=== PATIENT | male | born 1960 | race African-American/Black ===

== ENCOUNTER 2016-06-20 16:23 | Inpatient (IN) | payer MEDICARE, OTHER ==
[2016-06-20] MEDS ORDERED: Sodium Chloride 0.9% 1,000 ML IV ONE (16:53)
--- NOTE | 2016-06-20 17:46 | ED Physician Chart ---
Chief Complaint/HPI - Patient Information Date Seen:: 06/20/16 Time Seen:: 16:59 Chief Complaint:: COMBATIVE History of Present Illness:: THIS IS A 56 YO MALE PSYCH PATIENT WHO IS CONFUSED AND COMBATIVE. HE IS REFUSING BLOOD WORK AND MEDICATION AND WILL GIVE NO HISTORY. HE HAS BEEN HERE IN THE [facility] 04[facility]16[facility]16. THIS PATIENT NEEDS PSYCH EVALUATION AND TREATMENT. HE ALSO HAD SOME PROBLEM WITH HIS DIABETES AND RENAL FAILURE PROBLEM. Allergies:: Allergies Allergy/AdvReac Type Severity Reaction Status Date / Time No Known Allergies Allergy Verified 06/20/16 16:32 Vitals:: Vital Signs - 8 hr 06/20/16 16:25 Temp 97.8 F HR 73 RR 18 BP 103/63 O2 Sat % 98 Historian:: EMS, Medical Records Review:: Nurse's Note Reviewed Review of Systems - Review of Systems General/Constitutional: Other (REFUSED TO GIVE REVIEW OF SYSTEMS) Past Medical History - Past Medical History Obtainable: No Past Medical History: HTN, ESRD, Dementia Family History: None Social History: Non Smoker, No Alcohol, No Drug Use Surgical History: None Psychiatricy History: None Family Medical History - Family Member Mother History Unknown: Yes Physical Exam - Physical Examination General/Constitutional: Awake, Well-developed, well-nourished, Alert, No distress, GCS 15, Non-toxic appearing, Ambulatory Head: Atraumatic Eyes: Lids, conjuctiva normal, PERRL, EOMI Skin: Nl inspection, No rash, No skin lesions, No ecchymosis, Well hydrated, No lymphadenopathy ENMT: External ears, nose nl, Nasal exam nl, Lips, teeth, gums nl Neck: Nontender, Full ROM w/o pain, No JVD, No nuchal rigidity, No bruit, No mass, No stridor Respiratory: Nl effort/Exclusion, Clear to Auscultation, No Wheeze/Rhonchi/Rales Cardio Vascular: RRR, No murmur, gallop, rubs, NL S1 S2 GI: No tenderness/rebounding/guarding, No organomegaly, No hernia, Normal BS's, Nondistended, No mass/bruits, No McBurney tenderness : No CVA tenderness Extremities: No tenderness or effusion, Full ROM, normal strength in all extremities, No edema, Normal digits & nails Neuro/Psych: DTR's symmetric, Normal sensory exam, Normal motor strength, Mood normal, Normal gait, No focal deficits Other Neuro/Psych comments:: THIS PATIENT IS OUT OF TOUCH WITH REALITY AND UNCOOPERATIVE. Misc: normal gait, Normal back, No paraspinal tenderness Labs/Radiology/EKG Results - EKG Interpretations EKG Time:: 16:54 Rate & Rhythm: RATE = 64, NSR [place]: LEFT AXIS ED Septic Shock - . Is Septic Shock (SBP<90, OR Lactate>4 mmol\L) present?: No - <6hrs of presentation: Vital Signs: Vital Signs - 8 hr /07/02 16:25 Temp 97.8 F HR 73 RR 18 BP 103/63 O2 Sat % 98 Reassessment (Disposition) - Reassessment Reassessment Condition:: Unchanged - Diagnosis Diagnosis:: ALTERED LEVEL OF CONSCIOUSNESS RENAL FAILURE - Patient Disposition Discharge/Transfer:: Acute Care w/in this hosp Admitting Medical Physician:: Jason Self Condition at Disposition:: Unchanged ED Discharge Plan - Patient Disposition Admit/Discharge/Transfer: Acute Care w/in this hosp Condition at Disposition: Guarded Instructions: Psychosis
[2016-06-20] MEDS ORDERED: Haloperidol Lactate 5 mg/mL 1mL Vial IM STA (19:13)
[2016-06-20] MEDS ORDERED: Haloperidol Lactate 5 mg/mL 1mL Vial ONE ×2 (19:50→20:52)
[2016-06-20 20:48] LABS: % BASOPHILS 0.9 % (0.0-2.0); % LYMPHOCYTES 51.7 % (20.0-50.0); % MONOCYTES 5.4 % (2.0-10.0); HEMATOCRIT 44.1 % (39.0-49.0); HEMOGLOBIN 14.4 gm/dL (13.2-17.3); MEAN CELL VOLUME 87.2 fl (80-99); MEAN CORPUSCULAR HEMOGLOBIN 28.5 pg (26.0-30.0); MEAN CORPUSCULAR HGB CONC 32.7 pg (28.0-36.0); NEUTROPHILE ABSOLUTE 2.5 Th/cmm (1.8-8.0); PLATELET COUNT 162 Th/cmm (150-400); RED BLOOD COUNT 5.05 Mil/cmm (4.30-5.70); RED CELL DISTRIBUTION WIDTH 12.1 % (11.5-20.0); WHITE BLOOD COUNT 6.1 Th/cmm (4.8-10.8)
[2016-06-20] MEDS ORDERED: Haloperidol Lactate 5 mg/mL 1mL Vial IVP ONE (20:52)
[2016-06-20 21:14] LABS: INR 1.12 (0.5-1.4); PROTHROMBIN TIME (TEST) 11.8 SECONDS (9.5-11.5)
[2016-06-20 21:27] LABS: ALB/GLOB RATIO 0.8 (1.0-1.8); ALKALINE PHOSPHATASE 36 U/L (34-104); ANION GAP 10.1 (7.0-16.0); BILIRUBIN,TOTAL 1.9 mg/dL (0.3-1.0); BUN - UREA NITROGEN 33 mg/dL (7-25); CALCIUM SERUM 10.3 mg/dL (8.6-10.3); CARBON DIOXIDE 22.8 mEq/L (21.0-31.0); CHLORIDE 107 mEq/L (98-107); CHOLESTEROL 123 mg/dL (<200); CREATININE - SERUM 1.5 mg/dL (0.7-1.3); GLUCOSE 191 mg/dL (70-105); POTASSIUM SERUM 3.9 mEq/L (3.5-5.1); SGOT 77 U/L (13-39); SGPT/ALT 70 U/L (7-52); SODIUM SERUM 136 mEq/L (136-145); TRIGLYCERIDES 86 mg/dL (<150)
[2016-06-20] MEDS ORDERED: Hydrocodone/APAP 10 mg/325 mg Tab PO PRN (23:37)
[2016-06-20] MEDS ORDERED: Hydrocodone/APAP 5mg/325mg Tab PO PRN (23:37)
[2016-06-20] MEDS ORDERED: Maalox 30 mL Cup PO PRN (23:37)
[2016-06-20] MEDS ORDERED: Magnesium Hydroxide (MOM) 30 mL UDC PO PRN (23:37)
[2016-06-20] MEDS ORDERED: CA CARB PO SCH (23:45)
[2016-06-20] MEDS ORDERED: [UNRECOGNIZED DRUG - OTHER] PO SCH (23:45)
[2016-06-20] MEDS ORDERED: MAG HYDROX PO SCH (23:45)
[2016-06-20] MEDS ORDERED: FAMOTIDINE PO SCH (23:45)
--- NOTE | 2016-06-21 04:35 | Admit Criteria Form ---
Admit Criteria Forms - Admit Criteria Diagnosis: ACUTE LOSS OF CONSCIOUSNESS- ALOC Clinical Indications for Inpatient Care (Place 'X' for any and all applicable criteria): Ongoing inpatient care may be needed for ANY ONE of the following(1)(2)(3)(5)(6) : [X ]I. Suspected serious etiology (eg, medical disorder, AIR BREAKER OPERATOR event) of mental status change [ ]II. Danger to self or others not manageable at lower level of care [ ]III. Grave disability (eg, inability to perform self care necessary at lower level of care) [ ]IV. Agitation or inappropriate behavior interfering with care for primary condition (eg, attempting to discontinue lines or drains prematurely, unable to cooperate with respiratory care) [ ]V. Delirium [A] [D][E] as described by ANY ONE of the following(26): [ ]a) Delirium due to alcohol or sedative [F] withdrawal [ ]b) Delirium of uncertain etiology that has not responded to appropriate empiric treatment [ ]c) Delirium that prevents performance of a life-sustaining function (eg, feeding or hydrating oneself) [ ]. General contraindications and/or Inappropriate clinical situations for Observational Care in patients with Acute Loss of Consciousness, when ANY ONE of the following is required: [ ]a) Prediction of prolongation of LOS based on ANY ONE of the following may be considered as a contraindication for observational care 2, 3, 4, 5, 6, 7, 8 , 9, 10, 11 [ ]i) Age > 65 yrs. [ ]ii) Patient arriving by ambulance [ ]iii) Patient with high acuity [ ]iv) Patient requiring vital sign monitoring [ ]v) Patient on IV medication [ ]b) Systolic blood pressures 180mmHg 3,12 [ ]c) Patient with altered mental status including delirium and other alteration of consciousness, (3) [ ]d) Patient whose discharge disposition will be to a snf home or rehabilitation home should not be managed in Emergency Department Observation Unit. CMS rule requires 3 days hospital stay before such placement.3,13 [ ]e) Patient with failure to thrive due to broad array of etiologies 3,16,17 [ ]f) Inability to ambulate 3,14 Extended stay beyond goal length of stay for the primary condition may be needed until ALL of the following are present(3)(5): [ ]a) Underlying medical etiology of mental status change is absent, or has been established and adequately treated [ ]b) Danger to self or others is absent or manageable at lower level of care. [ ]c) Behavior crisis management, including physical or chemical restraints, is not required or available at lower level of car [ ]d) Substance or alcohol withdrawal is absent or manageable at lower level of care. [ ]e) Behavioral symptoms (eg, agitation, somnolence, inappropriate behavior) are absent, or are manageable at lower level of care. The original [facility] content created by [facility] has been revised. The portions of the content which have been revised are identified through the use of italic text or in bold, and [facility] has neither reviewed nor approved the modified material. All other unmodified content is copyright [facility]. Please see references footnoted in the original [facility] edition 2016 Admit Criteria Met?: Yes
[2016-06-21 06:51] LABS: % BASOPHILS 1.4 % (0.0-2.0); % EOSINOPHILS 1.8 % (0.0-5.0); % LYMPHOCYTES 44.1 % (20.0-50.0); % MONOCYTES 8.1 % (2.0-10.0); % NEUTROPHILS 44.6 % (40.0-80.0); HEMATOCRIT 41.9 % (39.0-49.0); HEMOGLOBIN 13.6 gm/dL (13.2-17.3); MEAN CELL VOLUME 87.9 fl (80-99); MEAN CORPUSCULAR HEMOGLOBIN 28.6 pg (26.0-30.0); MEAN CORPUSCULAR HGB CONC 32.6 pg (28.0-36.0); MEAN PLATELET VOLUME 9.9 fl; NEUTROPHILE ABSOLUTE 2.4 Th/cmm (1.8-8.0); PLATELET COUNT 149 Th/cmm (150-400); RED BLOOD COUNT 4.77 Mil/cmm (4.30-5.70); RED CELL DISTRIBUTION WIDTH 11.8 % (11.5-20.0); WHITE BLOOD COUNT 5.4 Th/cmm (4.8-10.8)
[2016-06-21] MEDS: INSULIN ASPART SLIDING SCALE 100 UNITS/ML UNIT SUBQ SCH ×4 (06:56→21:40)
[2016-06-21 07:33] LABS: ANION GAP 5.7 (7.0-16.0); BUN - UREA NITROGEN 30 mg/dL (7-25); CALCIUM SERUM 9.8 mg/dL (8.6-10.3); CARBON DIOXIDE 27.8 mEq/L (21.0-31.0); CHLORIDE 108 mEq/L (98-107); CREATININE - SERUM 1.2 mg/dL (0.7-1.3); GLUCOSE 262 mg/dL (70-105); POTASSIUM SERUM 4.5 mEq/L (3.5-5.1); SODIUM SERUM 137 mEq/L (136-145)
[2016-06-21] MEDS ORDERED: Sodium Chloride 0.9% 1,000 ML IV SCH (10:15)
--- NOTE | 2016-06-21 10:47 | Diagnostic Imaging Report ---
Portable chest x-ray History: Cough Allowing for portable technique the heart size is normal. No focal pulmonary parenchymal processes. No hilar or mediastinal abnormalities. Impression: No acute abnormalities.
--- NOTE | 2016-06-21 12:50 | History & Physical ---
ADMIT DATE: 06/20/2016 CHIEF COMPLAINT: Combative. HISTORY OF PRESENT ILLNESS: A 56-year-old black male who feels combative. The patient has been refusing blood work and medication and history. He has been here in the past. The patient needs psych evaluation and treatment. The patient also with diabetes and kidneys. ALLERGIES: No known allergies. REVIEW OF SYSTEMS: See history of present illness. PAST MEDICAL HISTORY: Hypertension, chronic kidney, dementia. PAST SURGICAL HISTORY: None known. FAMILY HISTORY: Unknown. SOCIAL HISTORY: No reports of smoking, drinking or drug use. PSYCHIATRIC HISTORY: Unknown. MEDICATIONS: See medication reconciliation form. PHYSICAL EXAMINATION: GENERAL: The patient is asleep. No acute distress. HEENT: Normocephalic, atraumatic. Extraocular movements intact. Pupils equal, round and reactive. Oropharynx clear. NECK: Supple. No thyromegaly. No lymphadenopathy. RESPIRATORY: Clear. No wheezes or rhonchi. CARDIOVASCULAR: S1, S2. No murmurs, rubs or gallops. GASTROINTESTINAL: Soft, nontender, nondistended, good bowel sounds. GENITOURINARY: No significant tenderness or suprapubic tenderness. BACK: No midline tenderness. EXTREMITIES: Equal pulses bilaterally. No cyanosis, clubbing or edema. SKIN: Negative. NEUROLOGIC: Cranial nerves intact. Extraocular movements intact. Sensory intact. Neurovascular is intact. Bilateral muscles grossly normal. LABORATORY DATA: On admission are as follows: Hematology: WBC 6.1, hemoglobin 14, hematocrit 41.4, platelet count of 162, and 51% neutrophils. PT 11.8, INR 1.12, PTT 25.9. Chemistry: Sodium 136, potassium 3.9, chloride per labs, bicarbonate 26.2, anion gap 10, BUN 33 and creatinine 0.5. GFR is more than 60. Glucose is 191, hemoglobin A1c 11.4, calcium 10.3, total bilirubin 1.9, AST 77, ALT 70, alkaline phosphatase is 36. Troponin 0.01. Total protein 8.9, albumin 4.0, globulin 4.9, triglycerides 86, cholesterol 123, LDL is 59, HDL 38. TSH 1.44. RPR nonreactive. IMPRESSION: 1. Altered level of consciousness. 2. Acute kidney injury. 3. Hyperglycemia. 4. Transaminitis. 5. Hypoalbuminemia. 6. Protein-calorie malnutrition (mild). 7. Dyslipidemia. 8. Hypertension. 9. Chronic kidney disease. 10. Dementia. 11. Diabetes mellitus. 12. Diabetic nephropathy. PLAN: The patient admitted to med/surg unit at [facility]. We will obtain further labs and consultation as needed. JOB# [id number] NICKY
--- NOTE | 2016-06-21 20:56 | Consultation ---
DATE OF CONSULTATION: 06/21/2016 REQUESTING PHYSICIAN: Dr. Self. REASON FOR CONSULTATION: Psychosis. HISTORY OF PRESENT ILLNESS: This patient is a 56-year-old -[place] male admitted with altered level of mental status and the psychiatric consultation is called with regards to the patient's refusal to comply with the medications and bizarre behaviors. Staff was spoken to. The patient is interviewed. During the interview, the patient has been mentioning that he was discharged to [facility] and he has been on psych medications, but he could not figure it out what medications they are. The patient is actively responding to internal stimuli. The patient has been behaving difficult to give the information with regards to any of the medications. SUBSTANCE ABUSE HISTORY: The patient denies use of any drugs or alcohol at this time. PHYSICAL OR SEXUAL ABUSE HISTORY: The patient denies any history of being physically or sexually abused. 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 MENTAL EXAMINATION: The patient is a 56-year-old, looking his stated age, superficially cooperative. Eye contact is fair. Mood is irritable. Affect is constricted. Insight and judgment at this time are noted to be impaired. Impulse control seems to be poor. The patient has been having difficult time to cope with the stress. The patient is not able to contract for safety at this time. The patient is actively responding to internal stimuli. The patient is, however, not presenting with any threats to harm self or others. DIAGNOSTIC ASSESSMENT: The patient is going to be started on olanzapine 5 mg at bedtime and the patient is going to be followed up with supportive therapy. Thank you, Dr. Self, for allowing me to participate in the care of the patient. JOB# [id number]
[2016-06-22] MEDS: INSULIN ASPART SLIDING SCALE 100 UNITS/ML UNIT SUBQ SCH ×4 (07:55→21:23)
[2016-06-22 18:06] LABS: URINE BILIRUBIN NEGATIVE (NEGATIVE); URINE BLOOD NEGATIVE (NEGATIVE); URINE COLOR YELLOW; URINE GLUCOSE (UA) 500 mg/dL (NEGATIVE); URINE KETONE NEGATIVE (NEGATIVE); URINE PH 5.5; URINE PROTEIN 100 mg/dL (NEGATIVE)
[2016-06-22 18:07] LABS: URINE BACTERIA FEW /hpf (NONE SEEN); URINE EPITHELIAL CELLS RARE /lpf (FEW); URINE RBC 0-1 /hpf (0-5); URINE WBC 0-2 /hpf (0-5)
--- NOTE | 2016-06-23 06:08 | Consultation ---
DATE OF CONSULTATION: 06/22/2016 REFERRING PHYSICIAN: Dr. Jasno Self. REASON FOR CONSULTATION: Acute kidney injury. HISTORY OF PRESENT ILLNESS: The patient is a 56-year-old male with psychiatric history, recently a resident of [facility] who has been admitted after nonadherence to medication and reportedly having bizarre behavior. He has been initiated on olanzapine per Dr. Rosas and upon admission was found to have acute kidney injury with an elevated creatinine of 1.5, hence the reason for consultation. Subsequent creatinine yesterday was improved to 1.2. He has refused further blood work and urine work that was ordered. Of note, he also has uncontrolled type 2 diabetes mellitus. PAST MEDICAL HISTORY: 1. Psychiatric disorder, not otherwise specified. 2. Type 2 diabetes mellitus. PAST SURGICAL HISTORY: None. SOCIAL HISTORY: States that he quit smoking and drinking several years ago. Denies illicit drug use. ALLERGIES: No known allergies. INPATIENT MEDICATIONS: Reviewed. He is on p.r.n. Tylenol, [place], Maalox, and Benadryl. He is also on Depakote, glipizide, sliding scale insulin, Ativan, and olanzapine. REVIEW OF SYSTEMS: CONSTITUTIONAL: Fair appetite. No fever or chills. CARDIOVASCULAR: No chest pain or palpitations. PULMONARY: No shortness of breath or cough. GASTROINTESTINAL: No nausea, vomiting, or constipation. GENITOURINARY: No dysuria or hematuria. MUSCULOSKELETAL: No acute joint pain or tenderness. PHYSICAL EXAMINATION: VITAL SIGNS: Temperature 97, heart rate 62, blood pressure 153/71, and respirations are 18. GENERAL: The patient is awake and alert, in no apparent distress. States that he wants to leave and states that he does not have the capacity to have further blood work drawn. CARDIOVASCULAR: S1 and S2, regular, no rub. LUNGS: Clear. EXTREMITIES: No edema. DIAGNOSTIC DATA: White blood cell count 5.4, hemoglobin 13.6, and platelet count 149,000. Sodium 137, potassium 4.5, CO2 of 27.8, BUN 30, creatinine 1.2 down from 1.5. Hemoglobin A1c 11.4 and calcium 9.8. TSH 1.44. ASSESSMENT AND RECOMMENDATIONS: The patient is a 56-year-old male with: 1. Nonoliguric acute kidney injury, likely prerenal in etiology, improving. No acute indication for renal replacement therapy at this time. Continue to avoid nephrotoxic medications and renally dosed medications as necessary. The patient has been counseled with regards to importance of blood work and urine studies. He states he will think about it. 2. Type 2 diabetes mellitus, uncontrolled. Continue glipizide and insulin sliding scale coverage. 3. Psychiatric disorder, not otherwise specified, stable. Continue Zyprexa per Dr. Lama. 4. Thrombocytopenia, stable. Monitor. Plan of care was discussed with the patient and RN. Thank you, Dr. Self for allowing me to participate in the care of this patient. I will continue to see him on an as needed basis. Please call anytime with questions. [facility]# [id number]
--- NOTE | 2016-06-23 07:30 | Progress Notes ---
DATE: 06/22/2016 SUBJECTIVE: The patient is awake and alert. The patient is refusing all labs and testing. Awaiting evaluation by Psychiatry. OBJECTIVE: VITAL SIGNS: Temperature per nursing, pulse 82, blood pressure per nursing, respiration 18, and O2 sat on room air. CARDIOVASCULAR: S1 and S2. RESPIRATORY: Clear. GASTROINTESTINAL: Soft. Positive bowel sounds. LAB DATA: No labs for today. ASSESSMENT: 1. Altered level of consciousness (improved). 2. Acute kidney injury. 3. Hyperglycemia. 4. Transaminitis. 5. Hypoalbuminemia. 6. Protein-calorie malnutrition (mild). 7. Dyslipidemia. 8. Hypertension. 9. Chronic kidney disease. 10. Dementia. 11. Diabetes mellitus. 12. Diabetic nephropathy. PLAN: Continue current treatment and medication. Obtain labs in a.m. Awaiting transfer to Geropsych Unit. Further recommendation as per consult. JOB# [id number] NICKY
[2016-06-23] MEDS: INSULIN ASPART SLIDING SCALE 100 UNITS/ML UNIT SUBQ SCH ×4 (08:32→21:46)
--- NOTE | 2016-06-24 03:52 | Discharge Summary ---
DATE OF DISCHARGE: 06/23/2016 DISCHARGE DIAGNOSES: 1. Acute psychosis. 2. Dementia. 4. Acute kidney injury (nonoliguric/prerenal). 5. Diabetes mellitus. 6. Diabetic nephropathy. 7. Chronic kidney disease. 8. Transaminitis. 9. Hypoalbuminemia. 10. Protein-calorie malnutrition (mild). 11. Dyslipidemia. 12. Hypertension. 13. Dementia. HOSPITAL COURSE: The patient is a 56-year-old male who presented to ER being combative. The patient was admitted with diagnoses of altered level of consciousness, acute kidney injury, hypercholesterolemia, transaminitis, hypoalbuminemia, protein-calorie malnutrition (mild), dyslipidemia, hypertension, chronic kidney disease, dementia, diabetes mellitus, diabetic nephropathy. The patient was admitted to Med-Surge unit. Consultation obtained. Psychiatry consultation obtained by Dr. Lama who recommended the patient be started on olanzapine 5 mg at bedtime. The patient will require supportive therapy. Nephrology consultation obtained from Dr. Angulo who recommended the patient be on IV fluids. During hospital course, the patient allowed blood to be drawn on 06/20/2016 and 06/21/2016 and refused blood draw since then. The patient has been accepted to Geropsych Unit at [facility]. The patient will be discharged from Med/Surge unit and transferred over to the Geropsych Unit. The patient will be followed at Geropsych Unit by Psychiatry (Dr. Lama). [facility]# [id number] NICKY
== END 2016-06-23 22:10 | disposition short-term general hospital (02) | DRG 682 ==
LOC: ER 16:23 → MSI 22:00
PROVIDERS: ADMIT Preventive Medicine Preventive Medicine/Occupational Environmental Medicine; ATTEND Preventive Medicine Preventive Medicine/Occupational Environmental Medicine
DX: N17.9 Acute kidney failure, unspecified (principal); G93.41 Metabolic encephalopathy; E11.21 Type 2 diabetes mellitus with diabetic nephropathy; E44.1 Mild protein-calorie malnutrition; F03.90 Unspecified dementia, unspecified severity, without behavioral disturbance, psychotic disturbance, mood disturbance, and anxiety; D69.6 Thrombocytopenia, unspecified; E78.5 Hyperlipidemia, unspecified; I12.9 Hypertensive chronic kidney disease with stage 1 through stage 4 chronic kidney disease, or unspecified chronic kidney disease; N18.9 Chronic kidney disease, unspecified; F29 Unspecified psychosis not due to a substance or known physiological condition; R74.0 Nonspecific elevation of levels of transaminase and lactic acid dehydrogenase [LDH]; Z68.25 Body mass index [BMI] 25.0-25.9, adult
CPT/HCPCS: 36415-UA; 71010-TC; 80048-TC; 80053-TC; 80061-TC; 81001-TC; 82948-90; 83036-90; 84300-TC; 84443-TC; 84484-TC; 85025-TC; 85610-TC; 85730-TC; 86592-TC; 93005; 96374; J1630; J1815; J2060; J7030; J7051